=== PATIENT | female | born 1945 | race Caucasian/White ===

== ENCOUNTER → 2017-02-02 | Outpatient (CLI) | payer MEDICARE, OTHER ==
[~2017-02-02] MED LIST: ASPI-875 PO; ENAL1TAB16 PO; MTF500T PO; MULT-963 PO
--- NOTE | 2017-02-02 14:07 | Diagnostic Imaging Report ---
Bilateral screening mammogram 2D views with tomosynthesis The current study was also evaluated with a Computer Aided Detection (CAD) system. INDICATION: Screening. No current complaints stated on the questionnaire. COMPARISON: 12/03/2015. FINDINGS: The breasts are composed of scattered fibroglandular densities. There are scattered benign-appearing calcifications seen. Allowing for technique and positional differences, no suspicious change is seen. IMPRESSION: No significant change. ACR BI-RADS Category 2: Benign findings. Result letter will be mailed to the patient. Note: At least 10% of breast cancer is not imaged by mammography. Dictated by: Dictated on workstation # [id number]
== END ==
LOC: RAD 09:23
PROVIDERS: ATTEND Family Medicine
DX: Z12.31 Encounter for screening mammogram for malignant neoplasm of breast (principal)
CPT/HCPCS: 77067

== ENCOUNTER → 2018-04-26 | Outpatient (CLI) | payer MEDICARE, OTHER ==
--- NOTE | 2018-04-26 13:17 | Diagnostic Imaging Report ---
INDICATION: Routine screening. COMPARISON: 02/02/2017 and 12/03/2015. TECHNIQUE: 2D and 3D bilateral screening mammography was performed with CAD. FINDINGS: Scattered fibroglandular densities are identified bilaterally. There are benign calcifications scattered throughout both breasts. The parenchymal pattern is stable. No dominant mass or malignant-appearing microcalcifications are seen. The axillae are unremarkable. IMPRESSION: No mammographic features suspicious for malignancy are identified. ACR BI-RADS Category 2: Benign findings. Result letter will be mailed to the patient. Note: At least 10% of breast cancer is not imaged by mammography. Dictated by: Dictated on workstation # [id number]
== END ==
LOC: RAD 07:12
PROVIDERS: ATTEND Nurse Practitioner Family
DX: Z12.31 Encounter for screening mammogram for malignant neoplasm of breast (principal)
CPT/HCPCS: 77067

== ENCOUNTER → 2018-09-20 | Outpatient (CLI) | payer MEDICARE, OTHER ==
--- NOTE | 2018-09-20 12:32 | Diagnostic Imaging Report ---
EXAMINATION: Lumbar spine at 10:39 a.m. INDICATION: Back pain. AP, lateral, and spot lateral views were obtained. There are no prior studies available for comparison. FINDINGS: The lateral view does show straightening of the lumbar spine. This may be secondary to muscle spasm and/or positioning. There is slight anterior translation of L4 with respect to L5, and there is mild narrowing of the disc space at this level. There is also narrowing of the disc spaces at every other level except L5-S1. There is no fracture or acute bony abnormality appreciated. There is no sign of a paraspinal mass. There is mild symmetrical sclerosis of the sacroiliac joints. IMPRESSION: 1. There is no evidence for an acute bony abnormality. 2. There is degenerative disc and bony disease as described above. 3. If there is clinical concern regarding spinal stenosis or nerve root encroachment, then MRI would be recommended for further study. Dictated by: Dictated on workstation # [id number]
== END ==
LOC: RAD 10:18
PROVIDERS: ATTEND Nurse Practitioner Family
DX: M51.36 Other intervertebral disc degeneration, lumbar region (principal); M89.9 Disorder of bone, unspecified
CPT/HCPCS: 72100

== ENCOUNTER → 2018-09-30 | Outpatient (CLI) | payer MEDICARE, OTHER ==
--- NOTE | 2018-09-30 14:07 | Diagnostic Imaging Report ---
PROCEDURE: MRI lumbar spine. TECHNIQUE: Multiplanar, multisequence MRI of the lumbar spine was performed without contrast. INDICATION: Back pain. COMPARISON: No prior examination is available for comparison. FINDINGS: The alignment of the lumbar spine is normal. The vertebral body heights are well-maintained. There is no spondylolysis or spondylolisthesis. No fractures are identified. There are no marrow signal intensity abnormalities. Conus medullaris seen at L1 is normal in appearance. The T12-L1 disc is unremarkable. At L1-L2, there is loss of disc height and signal intensity. There is some broad-based annular bulging, facet disease, and thickening of ligamentum flavum. There is mild central spinal stenosis and minimal neural foraminal encroachment. At L2-L3, there is loss of disc height and signal intensity. There is broad-based annular bulging, facet disease, and thickening of ligamentum flavum. There is mild spinal stenosis with encroachment upon the lateral recess bilaterally, right greater than left. There is moderate right and mild left neural foraminal encroachment. At L3-L4, there is a large central disc protrusion/extrusion. There is facet disease and thickening of ligamentum flavum. There is severe spinal stenosis with marked encroachment upon the lateral recess bilaterally, left greater than right. There is moderate right and mild left neural foraminal encroachment. At L4-L5, there is a small focal central disc extrusion as well as some broad-based annular bulging. There is facet disease and thickening of ligamentum flavum. There is moderate spinal stenosis with encroachment upon the lateral recess bilaterally, left greater than right. There is mild right and moderate-to*severe left neural foraminal encroachment. At L5-S1, there is no spinal or neural foraminal encroachment. The abdominal aorta is nonaneurysmal. Kidneys are normal in appearance. IMPRESSION: Diffuse lumbar spondylosis and multilevel degenerative disc disease as described above. Dictated by: Dictated on workstation # [id number]
== END ==
LOC: RAD 12:47
PROVIDERS: ATTEND Nurse Practitioner Family
DX: M48.061 Spinal stenosis, lumbar region without neurogenic claudication (principal); M51.26 Other intervertebral disc displacement, lumbar region; M47.816 Spondylosis without myelopathy or radiculopathy, lumbar region; M51.36 Other intervertebral disc degeneration, lumbar region
CPT/HCPCS: 72148

== ENCOUNTER 2018-12-01 11:18 | Outpatient (RCR) | payer MEDICARE, OTHER | END 2018-12-06 | disposition home or self-care (01) | PROVIDERS: ATTEND Nurse Practitioner Family | DX: M54.42 Lumbago with sciatica, left side (principal) ==

== ENCOUNTER → 2019-04-27 | Outpatient (CLI) | payer MEDICARE, OTHER ==
--- NOTE | 2019-04-28 08:12 | Diagnostic Imaging Report ---
Digital mammogram. Indication: Bilateral screening This study was compared to the prior exams of 04/26/2018, 02/02/2017 and 12/03/2015. At this time there are no current complaints. The current study was also evaluated with a Computer Aided Detection (CAD) system. FINDINGS: The fibroglandular tissue in both breasts is heterogeneously dense. This does limit the sensitivity of this exam. Overall, there does not appear to have been any significant change when compared to the prior study. No primary or secondary sign of malignancy is noted. IMPRESSION: There is no radiographic evidence for malignancy. ACR BI-RADS Category 1: Negative. Result letter will be mailed to the patient. Note: At least 10% of breast cancer is not imaged by mammography. Dictated by: Dictated on workstation # [id number]
== END ==
LOC: RAD 06:59
PROVIDERS: ATTEND Nurse Practitioner Family
DX: Z12.31 Encounter for screening mammogram for malignant neoplasm of breast (principal)
CPT/HCPCS: 77067

== ENCOUNTER → 2021-01-28 | Outpatient (CLI) | payer MEDICARE, OTHER ==
--- NOTE | 2021-01-28 15:24 | Diagnostic Imaging Report ---
INDICATION: Routine screening. Comparison is made with prior mammogram from 04/27/2019 and 04/26/2018. 2-D and 3-D bilateral screening mammography was performed with CAD. Both breasts are heterogeneously dense, limiting the sensitivity of mammography. A benign parenchymal and vascular calcifications are noted throughout both breasts. No mass or malignant-appearing microcalcifications are seen. Axillae are unremarkable. IMPRESSION: No mammographic features suspicious for malignancy are identified. BI-RADS Category 2 ACR BI-RADS Category 2: Benign findings. Result letter will be mailed to the patient. Note: At least 10% of breast cancer is not imaged by mammography. Dictated by: Dictated on workstation # [id number]
== END ==
LOC: RAD 12:42
PROVIDERS: ATTEND Nurse Practitioner Family
DX: Z12.31 Encounter for screening mammogram for malignant neoplasm of breast (principal)
CPT/HCPCS: 77063; 77067

== ENCOUNTER 2022-09-30 05:35 | Outpatient (CLI) | payer MEDICARE, OTHER ==
[~2022-09-30] VITALS: Ht 154.9 cm; Wt 56.8 kg
== END 2022-09-30 16:12 | disposition home or self-care (01) ==
LOC: PREOP 05:35 → EDSTATUS 09:00 → PREOP 16:12
PROVIDERS: ATTEND Specialist
DX: Z01.818 Encounter for other preprocedural examination (principal); H25.11 Age-related nuclear cataract, right eye

== ENCOUNTER 2022-10-09 06:00 | Day surgery (SDC) | payer MEDICARE, OTHER ==
[~2022-10-09] VITALS: Ht 154.9 cm; Wt 56.8 kg
[2022-10-09] MEDS ORDERED: POVIDONE (BETADINE) OPHTH SOLN 5% 30 ML OP ONE (06:15)
[2022-10-09] MEDS ORDERED: TIMOLOL 0.5% (CATARACTS) 0.3 ML BTL OU PRN (06:15)
[2022-10-09] MEDS ORDERED: MOXIFLOXACIN OPHTH SOLN 5 MG/ML 0.3 ML SYRINGE OP ONE (06:15)
[2022-10-09 06:28] VITALS: BP 229/116
[2022-10-09] MEDS: TETRACAINE 0.5% OPHTH SOLN 4 ML BTL (SINGLE DOSE ONLY) OU PRN ×4 (06:41→06:58)
[2022-10-09] MEDS: TROPICAMIDE 1% OPH SOLN (MYDRIACYL) 15 ML BTL OP SCH ×3 (06:48→06:58)
[2022-10-09] MEDS: PHENYLEPHRINE 10% OPHTH (NEO-SYN) 5 ML BTL OU SCH ×3 (06:48→06:58)
[2022-10-09] MEDS ORDERED: LABETALOL HCL 20 MG/4 ML VIAL ONE (06:49)
[2022-10-09] MEDS ORDERED: MIDAZOLAM 2 MG/2 ML (VERSED) VIAL ONE (07:08)
--- NOTE | 2022-10-09 07:18 | Ophthalmologist Pre-Op Note ---
Pre-Operative Progress Note H&P Reviewed The H&P was reviewed, patient examined and no changes noted. Date H&P Reviewed: Oct 09, 2022 Time H&P Reviewed: 07:18 Pre-Op Dx Cataract, Right Eye TONY UNGER MD Oct 09, 2022 07:18
--- NOTE | 2022-10-09 07:39 | Ophthalmology Operative Report ---
Cataract removal/placement IOL PREOPERATIVE DIAGNOSIS: Cataract Right Eye POSTOPERATIVE DIAGNOSIS: Cataract Right Eye PROCEDURE: Cataract removal and placement of posterior chamber implant, right eye SURGEON: Gabo Unger ANESTHESIA: Topical with sedation COMPLICATIONS: None ESTIMATED BLOOD LOSS: Minimal DESCRIPTION OF PROCEDURE: After proper informed consent was obtained, the patient, a 76 female, was taken to the Operating Room and the right eye was anesthetized with tetracaine. The right eye was then prepped and draped in the usual manner. A wire lid speculum was placed. A paracentesis was made at the left hand position. Preservative free lidocaine was injected into the anterior chamber followed by viscoelastic. A clear corneal incision was made in the temporal position. A capsulorrhexis was preformed and the central nuclear and cortical material were removed. The posterior capsule was polished and Ortiz 18.0 AU00T0 IOL was placed into the capsular bag. The residual viscoelastic was aspirated and balanced saline solution was injected into the anterior chamber. Moxifloxacin was injected into the anterior chamber. The wound was checked and found to be water tight. The patient tolerated the procedure well without complications. GABO UNGER MD Oct 09, 2022 07:39
[2022-10-09 07:46] VITALS: BP 170/88
[2022-10-09] MEDS ORDERED: acetaZOLAMIDE ER 500 MG CAP (DIAMOX SEQUELS) PO ONE (09:15)
--- NOTE | 2022-10-09 14:54 | Anesthesia-General Post-Op ---
MAC Patient Condition Mental Status/LOC: Same as Preop Cardiovascular: Satisfactory Nausea/Vomiting: Absent Respiratory: Satisfactory Pain: Controlled Complications: Absent Post Op Complications Complications None Follow Up Care/Instructions Patient Instructions None needed. Anesthesiology Discharge Order Discharge Order Patient was doing well after the procedure with no complaints, stable vital signs, no apparent adverse anesthesia problems. No complications reported per nursing. THOMAS GONZALEZ DO Oct 09, 2022 14:54
== END 2022-10-09 07:48 | disposition home or self-care (01) ==
LOC: SDC 06:00
PROVIDERS: ATTEND Specialist
DX: E11.36 Type 2 diabetes mellitus with diabetic cataract (principal); H25.9 Unspecified age-related cataract; Z79.84 Long term (current) use of oral hypoglycemic drugs
CPT/HCPCS: 66984; 82947; V2632

== ENCOUNTER 2022-10-20 05:38 | Outpatient (CLI) | payer MEDICARE, OTHER | END 2022-10-20 09:30 | LOC: PREOP 05:38 | PROVIDERS: ATTEND Specialist | DX: Z01.818 Encounter for other preprocedural examination (principal) ==

== ENCOUNTER → 2022-12-03 | Outpatient (CLI) | payer MEDICARE, OTHER ==
--- NOTE | 2022-12-03 11:53 | Diagnostic Imaging Report ---
INDICATION: Routine screening. COMPARISON: 01/28/2021 and 04/27/2019. TECHNIQUE: 2D and 3D bilateral screening mammography was performed with CAD. FINDINGS: Both breasts are heterogeneously dense, limiting the sensitivity of mammography. The parenchymal pattern is stable. No dominant mass or malignant-appearing microcalcifications are seen. Scattered benign parenchymal and vascular calcifications are again noted. The axillae are unremarkable. IMPRESSION: No mammographic features suspicious for malignancy are identified. ACR BI-RADS Category 2: Benign findings. Result letter will be mailed to the patient. Note: At least 10% of breast cancer is not imaged by mammography. Dictated by: Dictated on workstation # [id number]
== END ==
LOC: RAD 06:52
PROVIDERS: ATTEND Nurse Practitioner Family
DX: Z12.31 Encounter for screening mammogram for malignant neoplasm of breast (principal)
CPT/HCPCS: 77063; 77067